=== PATIENT | male | born 1965 | race African-American/Black ===

== ENCOUNTER 2021-10-19 11:34 | Inpatient (IN) | payer OTHER ==
[~2021-10-19] VITALS: Ht 172.7 cm; Wt 122.9 kg
[2021-10-19 11:45] VITALS: BP 131/55
[2021-10-19] MEDS ORDERED: PROTONIX40 M2 PO (14:35)
[2021-10-19] MEDS ORDERED: CETIRIZINE HCL10 MG PO (14:35)
[2021-10-19] MEDS ORDERED: MS CONTIN 30 MG30 M1 PO (14:35)
[2021-10-19] MEDS ORDERED: DILAUDID 4 MG TA4 M1 PO (14:35)
[2021-10-19] MEDS ORDERED: LOSARTAN POTAS100 MG PO (14:35)
[2021-10-19] MEDS ORDERED: HYDROCHLOROTH12.5 M2 PO (14:35)
[2021-10-19] MEDS ORDERED: METOPROLOL SUCC50 MG PO (14:36)
[2021-10-19] MEDS ORDERED: JARDIANCE25 MG PO (14:36)
[2021-10-19] MEDS ORDERED: ATORVASTATIN CA20 MG PO (14:36)
[2021-10-19] MEDS ORDERED: KLOR-CON M1010 MEQ PO (14:36)
[2021-10-19 14:38] LABS: HEMATOCRIT 38.4 % (42.0-52.0); HEMOGLOBIN 13.1 gm/dL (14.0-18.0); MCH 31.3 pg (26.0-34.0); MCV 91.9 fL (80.0-100.0); PLATELET COUNT 229 thou/uL (150-400); RBC 4.17 mil/uL (4.50-6.00); RDW 12.1 % (10.5-14.5)
[2021-10-19 15:51] LABS: ABSOLUTE NEUTROPHILS 3.6 thou/uL (1.4-8.2); ATYPICAL LYMPHS 2 %; CALCIUM 9.4 mg/dL (8.5-10.1); CREATININE 1.1 mg/dL (0.7-1.3); PLATELET ESTIMATE NORMAL; POTASSIUM 3.5 mmol/L (3.5-5.1)
[2021-10-19 16:02] LABS: ALBUMIN 3.4 g/dL (3.4-5.0); MAGNESIUM 1.9 mg/dL (1.8-2.4); TOTAL BILIRUBIN 0.5 mg/dL (0.2-1.0); TOTAL PROTEIN 7.8 g/dL (6.4-8.2)
--- NOTE | 2021-10-19 16:29 | EKG ---
[address] [place] [place] [address] ELECTROCARDIOGRAM REPORT Name: LIZZETTE FOOTE [id number] Admission: 10/19/21 Attend Phys: Discharge: Date of : 61 Report #: [id number] [facility] ED Test Date: 2021-10-19 Test Time: 14:48:42 Pat Name: LIZZETTE FOOTE Department: Room: Gender: M Copy Writer: OMEGA : 1965 Requested By: Yi Chowdhury Order Number: [id number] MD: Rashel Enriquez Measurements Intervals [place] Rate: 36 P: [place]: QRS: -7 QRSD: 96 T: 4 QT: 460 QTc: 356 Interpretive Statements Atrial fibrillation with a slow ventricular response Poor R-wave progression No previous ECG available for comparison Electronically Signed On 10-19-2021 16:29:12 TUB MENDER by Rashel Enriquez [email or web address] <ELECTRONICALLY SIGNED> By: Rashel Enriquez MD, [facility] 10/19/21 1629 1448 1448 Rashel Enriquez MD, FACC /EPI
[2021-10-19 19:54] VITALS: BP 151/69
[2021-10-19 21:10] VITALS: BP 127/70
[2021-10-20 02:40] LABS: HEMATOCRIT 37.7 % (42.0-52.0); HEMOGLOBIN 12.7 gm/dL (14.0-18.0); MCH 30.9 pg (26.0-34.0); MCHC 33.6 g/dL (28.0-37.0); MCV 92.1 fL (80.0-100.0); PLATELET COUNT 219 thou/uL (150-400); RDW 12.1 % (10.5-14.5); WBC 7.7 thou/uL (4.0-11.0)
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
[2021-10-20 04:51] VITALS: BP 133/70
--- NOTE | 2021-10-20 08:32 | EKG ---
[address] [place] [address] ELECTROCARDIOGRAM REPORT Name: LIZZETTE FOOTE Room #: 210-[facility]..#: [id number] Admission: 10/19/21 Attend Phys: Reggie Rojo MD Discharge: Date of : 61 Report #: [id number] [facility] Test Date: 2021-10-20 Test Time: 07:58:30 Pat Name: LIZZETTE FOOTE Department: Room: 210 P Gender: M Graphic Coordinator: DREA : 1965 Requested By: Nicho Blum Order Number: [id number] MD: Reji Tucker Measurements Intervals [place] Rate: 52 P: [place]: QRS: -8 QRSD: 101 T: 5 QT: 457 QTc: 425 Interpretive Statements Junctional rhythm vs AFIB Inferior infarct, old Compared to ECG 10/19/2021 14:48:42 Poor R-wave progression no longer present Electronically Signed On 10-20-2021 8:31:53 [employer] TRAVEL COUNSELOR by Reji Tucekr [email or web address] <ELECTRONICALLY SIGNED> By: Reji Tucker MD, [facility] 10/20/21 0831 0758 0758 Reji Tucker MD, FACC /EPI
[2021-10-20 08:43] VITALS: BP 136/70
--- NOTE | 2021-10-20 10:16 | NUR ---
TOOK OVER CARE OF THIS PATIENT AT 0700. PATIENT RESTING IN BED COMFORTABLY. CARDIOLOGY CONSULTED PATIENT THIS MORNING; WILL CONTINUE TO MONITOR HEART RHYTHM AND RATE. PATIENT AXOX4; ANSWERS QUESTIONS APPROPRIATLEY. PATIENT HAS ECHOCARDIOGRAM, EKG, MRI, AND ULTRASOUND SCHEDULED FOR THIS AM. ASSESSMENTS CHARTED. FALL PRECAUTIONS IN PLACE. CALL LIGHT WITHIN REACH.
--- NOTE | 2021-10-20 11:21 | 2DMMODE ---
[facility] [place] [address] 2 D/M-MODE ECHOCARDIOGRAM Name: LIZZETTE FOOTE Room #: 210-P [facility] M.R.#: [id number] Admission: 10/19/21 Attend Phys: Reggie Rojo MD Discharge: Date of : 61 Report #: [id number] THIS REPORT FOR: cc: FAM - Family physician unknown FAM - Family physician unknown Reji Tucker MD [facility] ~ APPROVED REPORT Study performed: 10/20/2021 08:35:07 EXAM: Comprehensive 2D, Doppler, and color-flow Echocardiogram Patient Location: Bedside Room #: 210 Status: routine BSA: 2.36 HR: 57 bpm BP: 133/70 mmHg Rhythm: NSR Other Information Study Quality: Good Indications Bradycardia Hx: HTN, HLP, DM, BLE. 2D Dimensions IVSd: 8.94 (7-11mm) LVOT Diam: 21.28 (18-24mm) LVDd: 49.72 mm PWd: 8.63 (7-11mm) Ascending Ao: 37.99 (22-36mm) LVDs: 33.20 (25-40mm) Left Atrium: 36.75 (27-40mm) Aortic Root: 36.21 mm Volumes Left Atrial Volume (Systole) Single Plane 4CH: 62.98 mL Single Plane 2CH: 75.03 mL LA ESV Index: 31.00 mL/m2 Aortic Valve AoV Peak Charlie.: 1.97 m/s AO Peak Gr.: 15.47 mmHg LVOT Max P.06 mmHg LVOT Max V: 1.33 m/s TIANA Vmax: 2.40 cm2 [facility] [address] [place] [address] 2 D/M-MODE ECHOCARDIOGRAM Name: LIZZETTE FOOTE Room #: 210-P [facility] IN [facility]#: [id number] Admission: 10/19/21 Attend Phys: Reggie Rojo MD Discharge: Date of : 61 Report #: [id number] Mitral Valve E/A Ratio: 1.3 MV Decel. Time: 253.25 ms MV E Max Charlie.: 1.11 m/s MV A Charlie.: 0.85 m/s MV PHT: 73.44 ms IVRT: 55.36 ms Pulmonary Valve PV Peak Charlie.: 1.01 m/s PV Peak Gr.: 4.12 mmHg Pulmonary Vein P Vein S: 0.91 m/s P Vein D: 0.97 m/s P Vein S/D Ratio: 0.94 Tricuspid Valve TR Peak Charlie.: 2.43 m/s RAP Estimate: 5.00 mmHg TR Peak Gr.: 24.00 mmHg PA Pressure: 29.00 mmHg Left Ventricle The left ventricle is normal size. There is normal LV segmental wall motion. There is normal left ventricular wall thickness. Left ventricular systolic function is normal. LVEF is 65%. The left ventricular diastolic function is normal. Right Ventricle The right ventricle is normal size. The right ventricular systolic function is normal. Atria The left atrium size is normal. The right atrium size is normal. Aortic Valve The aortic valve is normal in structure. No aortic regurgitation is present. There is no aortic valvular stenosis. Mitral Valve The mitral valve is normal in structure. Mild mitral regurgitation. Tricuspid Valve The tricuspid valve is normal in structure. Trace tricuspid [facility] [place] [address] 2 D/M-MODE ECHOCARDIOGRAM Name: LIZZETTE FOOTE Room #: 210-P [facility] IN M.R.#: [id number] Admission: 10/19/21 Attend Phys: Reggie Rojo MD Discharge: Date of : 61 Report #: [id number] regurgitation. Estimated PAP is 29mmHg. Pulmonic Valve The pulmonary valve is normal in structure. Trace pulmonic regurgitation. Great Vessels The aortic root is normal in size. The ascending aorta is borderline dilated. IVC is normal in size and collapses >50% with inspiration. Pericardium There is no pericardial effusion. <Conclusion> Normal ventricle size/wall thickness central ejection fraction 65% Normal right ventricle size/function Normal atrial size Normal aortic valve structure and function Mild mitral valve insufficiency Trace tricuspid valve insufficiency Pulmonary systolic pressure estimated 29 mmHg No pericardial effusion Ascending aorta borderline dilated <ELECTRONICALLY SIGNED> By: Reji Tucker MD, FACC 10/20/211120 20 20 Reji Tucker MD, FAC /INF
[2021-10-20 11:37] VITALS: BP 126/64
[2021-10-20 14:02] LABS: ABSOLUTE NEUTROPHILS 3.3 thou/uL (1.4-8.2); ATYPICAL LYMPHS 4 %; PLATELET ESTIMATE NORMAL
[2021-10-20 16:19] VITALS: BP 137/68
[2021-10-20 19:09] VITALS: BP 135/62
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
[2021-10-21] VITALS (7 sets, daily range): BP systolic 124–190; BP diastolic 68–101
--- NOTE | 2021-10-21 04:45 | NUR ---
ASSUMED PT CARE AT 1900, ALERT AND ORIENTEDX4, ASSESSMENTS CHARTED, SR/1DAVB ON TELE, HR LOW 31 ON TELE WHILE SLEEPING, ASYMPTOMATIC, DENIES CP OR SOB, PAIN TO THE LLE, TREATED WITH SCHEDULED AND PRN PAIN MEDS WITH PARTIAL RELIEF, DRESSING TO THE L. ARANDA CHANGED, WILL CONTINUE TO MONITOR PT PER POC
[2021-10-21 07:21] LABS: HEMOGLOBIN 12.4 gm/dL (14.0-18.0); MCH 30.2 pg (26.0-34.0); MCHC 32.6 g/dL (28.0-37.0); MCV 92.7 fL (80.0-100.0); RBC 4.1 mil/uL (4.50-6.00); RDW 12.6 % (10.5-14.5); WBC 7.3 thou/uL (4.0-11.0)
[2021-10-21 07:25] LABS: CALCIUM 8.7 mg/dL (8.5-10.1); POTASSIUM 4.4 mmol/L (3.5-5.1)
--- NOTE | 2021-10-21 12:12 | NUR ---
PT ADMITTED FOR A-FIB, WOUND L ARANDA. REVIEWED PTS CHART AND DISCUSSED WITH CARE TEAM. MET WITH PT THIS DAY. HEDY SINCLAIR INTRODUCED. PT REPORTS HE LIVES AT HOME WITH "HIS MISSES" AND DAUGHTER. HE REPORTS IS INDENPENDENT WITH ALL ADLS AND MOBILITY. PT WILL DC ON ABTS. UNSURE IF PO OF IV ABTS AT THIS TIME. WILL CONTINUE TO FOLLOW AND MAKE RECOMMENDATIONS NEEDED.
--- NOTE | 2021-10-21 13:35 | NUR ---
TOOK OVER CARE OF THIS PATIENT AT 0700. PT AXOX4. PT ON ROOM AIR; DENIES SHORTNESS OF BREATH. PT DENIES PAIN AT THIS TIME. VSS. GOOD APPETITE. ASSESSMENTS CHARTED. FALL PRECAUTIONS IN PLACE. FAMILY/SIGNIFICANT OTHER AT BEDSIDE. DENIES ANY OTHER NEEDS.
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
--- NOTE | 2021-10-21 15:23 | NUR ---
PLAN OF CARE STILL UNCERTAIN IF PT WILL DC ON PO OR IV ABTS. CM SENT REFERRAL TO [facility] TO VERIFY COVERAGE OF HOME AND ABT SUPPLIES. STILL PENDING AT THIS TIME. [facility] HAS ACCEPTED PT FOR HH SHOULD PT NEED HH ON DISCHARGE THROUGH THE WEEKEND. [facility] PHONE NUMBER IS [phone].
--- NOTE | 2021-10-22 03:24 | NUR ---
ASSUMED PT CARE AT 1900, ALERT AND ORIENTEDX4, FAMILY AT BEDSIDE, ASSESSMENTS CHARTED, BRADYCARDIA LOW 26 BPM NOTED ON TELE, CARDIOLOGY NOTIFIED, NO ORDERS RECEIVED, DENIES DIZZINESS, LIGHTHEADEDNESS AND CP, DRESSING TO THE L. ARANDA INTACT, MEDS GIVEN PER EMAR, VSS, WILL CONTINUE TO MONITOR PER POC
[2021-10-22 04:31] VITALS: BP 121/57
[2021-10-22 04:43] LABS: HEMATOCRIT 35.9 % (42.0-52.0); HEMOGLOBIN 12.2 gm/dL (14.0-18.0); MCH 31.2 pg (26.0-34.0); MCHC 34.1 g/dL (28.0-37.0); MCV 91.5 fL (80.0-100.0); RBC 3.92 mil/uL (4.50-6.00); RDW 12.5 % (10.5-14.5); WBC 6.3 thou/uL (4.0-11.0)
[2021-10-22 04:47] LABS: CALCIUM 8.4 mg/dL (8.5-10.1); CREATININE 0.9 mg/dL (0.7-1.3); POTASSIUM 3.7 mmol/L (3.5-5.1)
[2021-10-22 07:53] VITALS: BP 145/73
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
[2021-10-22 12:04] VITALS: BP 160/79
[2021-10-22 12:25] VITALS: BP 160/79
[2021-10-22 16:08] VITALS: BP 144/73
[2021-10-22 20:15] VITALS: BP 146/83
--- NOTE | 2021-10-23 02:51 | NUR ---
ASSESSMENTS CHARTED, MEDS CHARTED GIVEN. PATIENT RESTING IN BED DURING SHIFT. UP AT SONYA IN ROOM. RECEIVING ANTIBIOTICS, NO MAINTENANCE FLUIDS. HR CONTINUES TO DECREASE WHEN ASLEEP. HR DIPPED BRIEFLY IN THE 20'S AND 30'S. PATIENT NPO SINCE MIDNIGHT FOR I&D IN THE AM FOR HIS LEFT LEG WOUND. MRI SHOWED NO EVIDENCE OF OSTEOMYLITIS. WOUND POSSITIVE FOR MICROCOCCUS AND STAPHYLOCOCCUS.
[2021-10-23 04:45] VITALS: BP 156/83
[2021-10-23 07:00] VITALS: BP 118/77
[2021-10-23 07:10] VITALS: BP 143/82
[2021-10-23 11:41] VITALS: BP 156/85
[2021-10-23 15:15] VITALS: BP 137/74
--- NOTE | 2021-10-23 19:31 | NUR ---
Pt went down for surgery at 8:30am. Pt was A&0x4, VS stable and afebrile. Hardware in Left ankle was removed. Dressing in place. Feet are edematous. Pulses present. Pt reports having pain. Which is being controlled with repositioning and pain medication. Pt was up to the commode with assistance and had BM. at bedside. No concerns at this time. Continue to monitor.
[2021-10-23 19:45] VITALS: BP 140/63
[2021-10-24 00:05] VITALS: BP 136/71
--- NOTE | 2021-10-24 02:30 | NUR ---
ASSESSMENTS CHARTED, MEDS CHARTED GIVEN. RESTING IN BED POST SURGERY. LEFT LEG ELEVATED ON PILLOW SO HEEL IS FLOATING ABOVE BED. HEMOVAC IN PLACE, DRAINING. DIET WAS ADVANCED TO HEART HEALTHY DURING SHIFT. PAIN MEDS GIVEN OFTEN AVAILABLE TO HELP CONTROL PAIN. PATIENT ALREADY REQUESTING A DISCHARGE DATE.
[2021-10-24 04:45] VITALS: BP 153/85
[2021-10-24 04:53] LABS: CALCIUM 8.4 mg/dL (8.5-10.1); CREATININE 0.9 mg/dL (0.7-1.3); POTASSIUM 3.6 mmol/L (3.5-5.1)
[2021-10-24 05:11] LABS: HEMATOCRIT 37.6 % (42.0-52.0); HEMOGLOBIN 12.6 gm/dL (14.0-18.0); MCH 30.8 pg (26.0-34.0); MCHC 33.4 g/dL (28.0-37.0); MCV 92.2 fL (80.0-100.0); RBC 4.08 mil/uL (4.50-6.00); RDW 12.3 % (10.5-14.5); WBC 8.1 thou/uL (4.0-11.0)
[2021-10-24 08:31] VITALS: BP 168/81
--- NOTE | 2021-10-24 10:19 | NUR ---
Pt off unit for EGD.
--- NOTE | 2021-10-24 10:36 | NUR ---
Assumed care of pt this AM. Pt is A&O x4, on RA, Phani 1 on the monitor. Pt reports no chest pain or SOA. Pt reports Lt leg pain 10/10, uncontrolled throughout the night. Ice applied to LLE per order. Camb boot ordered for pt per order. Spoke w/ provider about changing PO pain medication to obtain better relief of pain. Plan to work w/ PT today. Pt denies any other concerns currently.
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
[2021-10-24 12:08] VITALS: BP 140/66
--- NOTE | 2021-10-24 15:34 | NUR ---
CM MET WITH PT THIS DAY. [facility] ACCEPTED PT ONCE MEDICALLY STABLE TO DC HOME. PT CONTINUES TO BE AGREEABLE TO HOME INFUSION. HAS SUPPORTIVE FAMILY. WILL CONTINUE TO FOLLOW DISCHARGE NEEDS.
--- NOTE | 2021-10-24 17:26 | O ---
[facility] [place] [address] OPERATIVE REPORT Name: LIZZETTE FOOTE Room #: 210-P [facility] .R.#: [id number] Admission: 10/20/21 Attend Phys: Reggie Rojo MD Discharge: Date of : 61 Report #: [id number] THIS REPORT FOR: cc: FAM - Family physician unknown FAM - Family physician unknown Zanedr Matias MD ~ DATE OF SERVICE: 10/23/2021 PREOPERATIVE DIAGNOSES: 1. Left leg retained hardware. 2. Left leg abscess. POSTOPERATIVE DIAGNOSES: 1. Left leg retained hardware. 2. Left leg abscess. PROCEDURE: Left leg hardware removal with irrigation and debridement. SURGEON: Zander Matias MD LATH TIER: None. ANESTHESIA: General. ESTIMATED BLOOD LOSS: 50 mL. DRAINS: One Hemovac drain was placed. COMPLICATIONS: There were no complications. TOURNIQUET TIME: 84 minutes. DESCRIPTION OF PROCEDURE: The patient brought to the operating room where he was placed under general anesthesia. Once under adequate general anesthesia, his left lower extremity was prepped and draped in a sterile manner. The extremity was elevated and a tourniquet placed to 300 mmHg. The patient had a medial wound over his distal tibia and hardware, which was in place there. This was excised in an elliptical fashion. This was a transverse wound unfortunately. The distal aspect of his previous scar was incised as well, thereby exposing the distal medial tibial plate, the 5 or 6 screws in the plate there distally were then removed through this incision. Two separate incisions were made proximally over the 5 screw heads there. These were also removed. Osteotomes and curettes were used to remove any overlying bone that had grown over the plate and the screw heads. The screws were then subsequently removed. The plate was freed from the surrounding soft tissue and soft bone with a large osteotome and a Ryan elevator and then subsequently removed through the distal [facility] [address] [place] [address] OPERATIVE REPORT Name: LIZZETTE FOOTE Dayna Room #: 210-P [facility].#: [id number] Admission: 10/20/21 Attend Phys: Reggie Rojo MD Discharge: Date of : 61 Report #: [id number] incision. Cultures had been taken upon entering the leg. The wound was irrigated copiously with normal saline solution and then closed over a Hemovac drain with a 2-0 Prolene in the subcutaneous tissues and yair proximally and very distally on the incision, and then 2-0 nylon in the excised portion of the wound. The wound was then dressed with Xeroform, 4x4s, and a sterile soft compressive dressing was placed. The tourniquet was let down at approximately 84 minutes. Toes were pink and warm. Good capillary refill. There were no complications from the procedure. The patient tolerated the procedure well and was to the recovery room without incident. <ELECTRONICALLY SIGNED> By: Zander Matias MD 10/24/21 1726 [id number] Zander Matias MD /nt
[2021-10-24 20:15] VITALS: BP 144/66
--- NOTE | 2021-10-25 00:51 | NUR ---
ASSESSMENT CHARTED. PT IS CALM AND COOPERATIVE. LLE ELEVATED ON PILLOW, HEEL OFFLOADED,POSTOP DRSG IN PLACE. GOOD CSM TO TOES ON LLE.JUNCTIONAL RHYTHM,DENIES CHESTPAIN.CALLS WITH NEEDS.
[2021-10-25 04:45] VITALS: BP 146/77
[2021-10-25 04:52] LABS: HEMATOCRIT 33.6 % (42.0-52.0); HEMOGLOBIN 11.2 gm/dL (14.0-18.0); MCH 30.8 pg (26.0-34.0); MCHC 33.5 g/dL (28.0-37.0); MCV 92.2 fL (80.0-100.0); RBC 3.65 mil/uL (4.50-6.00); RDW 12.2 % (10.5-14.5); WBC 7.2 thou/uL (4.0-11.0)
[2021-10-25 05:11] LABS: CALCIUM 8.1 mg/dL (8.5-10.1); CREATININE 0.9 mg/dL (0.7-1.3); POTASSIUM 3.6 mmol/L (3.5-5.1)
[2021-10-25 07:00] VITALS: BP 1401/69
--- NOTE | 2021-10-25 11:41 | NUR ---
PICC LINE BEING PLACED BY IV NURSE AT THIS TIME. PLAN FOR PATIENT TO DISCHARGE TOMORROW WITH IV ABX. THERAPY TO SEE PATIENT AFTER LINE PLACEMENT. SPOKE WITH DR. ALEGRE, ORDERS TO D/C DRAIN. WILL PRE-TREAT WITH PAIN MEDICATION PRIOR TO REMOVAL.
--- NOTE | 2021-10-25 11:58 | NUR ---
A SINGLE LUMEN POWER PICC WAS PLACED PER HOSPITAL POLICY AFTER A BEDSIDE TIMEOUT WAS COMPLETED. THE RIGHT BASILIC VEIN TO CATHETER RATIO WAS LESS THAN 28%. THE PICC WAS TRIMMED TO 48CM AND CONFIRMED AT 3CM EXTERNAL. LINE WAS SECURED AND RELEASED FOR USE
--- NOTE | 2021-10-25 12:39 | NUR ---
WOUND CARE F/U; ROUNDING WITH DR MUSA AND JASEN [employer] SERVICER TODAY. THE LEFT ARANDA SURGICAL INSCISION IS STABLE WITH NO S/S OF DEHISCENCE. NO ODOR. THE EXTREMITY IS LESS TENDER. THE PERIWOUND MARGINS HAVE NO S/S OF INFECTION. SKIN TEMP IS WNL. RECOMMENDATION; CONTINUE CURRENT TREATMENT.
[2021-10-25 16:00] VITALS: BP 114/97
--- NOTE | 2021-10-25 16:39 | NUR ---
CLINICAL UPDATES SENT TO [facility]. PT AGREEABLE TO ADMINISTER IV ABTS FOLLOWING TEACHING. CM WILL FOLLOW.
[2021-10-25 19:28] VITALS: BP 146/69
[2021-10-26 03:52] VITALS: BP 134/73
--- NOTE | 2021-10-26 07:35 | NUR ---
assumed pt care at 1900, alert andf orientedx4, rick on tele as low as 29 while sleeping, assessments as charted, remains on iv abx, plan to discharge home with iv abx, enzo picc intact, report given to day rn
[2021-10-26 08:00] VITALS: BP 153/83
[2021-10-26] MEDS ORDERED: DILAUDID 4 MG TA4 M1 PO (11:43)
[2021-10-26] MEDS ORDERED: VANCOMYCIN1.25 GM/23 IV (11:44)
[2021-10-26 12:33] VITALS: BP 137/75
[2021-10-26 15:03] VITALS: BP 160/79
--- NOTE | 2021-10-26 16:15 | NUR ---
PT TO DC HOME THIS EVENING. [facility] ACCEPTED AND WILL SEE PT FOR HH NEEDS. [facility] ACCEPTED TO SUPPLY MEDICATIONS AND SUPPLIES FOR PT. THEY CAME AND PROVIDED PT WITH EDUCATION AT BEDSIDE. [facility] PROVIDED FOR PT ON DC. PT AGREEABLE TO ALL DC PLAN.
--- NOTE | 2021-10-26 17:25 | NUR ---
PATIENT DISCHARGED HOME WITH PICC LINE IN PLACE FOR HOME IV ABX. EDUCATION DONE AT BEDSIDE BY [facility]. DISCHARGE INSTRUCTIONS REVIEWED WITH PATIENT. AWARE OF NEED FOR FOLLOW UP APPOINTMENTS WITH ID, CARDIOLOGY, AND ORTHO. SCRIPT FOR PAIN MEDICATION GIVEN. PATIENT DENIES ANY QUESTIONS OR CONCERNS. ALL BELONGINGS SENT HOME WITH PATIENT.
== END 2021-10-26 18:02 | disposition home health service (06) | DRG 493 ==
LOC: ER 11:34 → EROBS 16:53 → 2N 16:53
PROVIDERS: Orthopaedic Surgery Foot and Ankle Surgery; Physician Assistant; Specialist; ADMIT Hospitalist; ATTEND Hospitalist
DX: T84.623A Infection and inflammatory reaction due to internal fixation device of left tibia, initial encounter (principal); T81.41XA Infection following a procedure, superficial incisional surgical site, initial encounter; L03.116 Cellulitis of left lower limb; E44.1 Mild protein-calorie malnutrition; Z68.41 Body mass index [BMI] 40.0-44.9, adult; L97.929 Non-pressure chronic ulcer of unspecified part of left lower leg with unspecified severity; L02.416 Cutaneous abscess of left lower limb; I48.91 Unspecified atrial fibrillation; I10 Essential (primary) hypertension; E11.622 Type 2 diabetes mellitus with other skin ulcer; E66.9 Obesity, unspecified; E78.5 Hyperlipidemia, unspecified; S80.922A Unspecified superficial injury of left lower leg, initial encounter; X58.XXXA Exposure to other specified factors, initial encounter; B95.7 Other staphylococcus as the cause of diseases classified elsewhere; I49.5 Sick sinus syndrome; G89.4 Chronic pain syndrome; B96.89 Other specified bacterial agents as the cause of diseases classified elsewhere; Y83.8 Other surgical procedures as the cause of abnormal reaction of the patient, or of later complication, without mention of misadventure at the time of the procedure; Z96.643 Presence of artificial hip joint, bilateral; Z20.822 Contact with and (suspected) exposure to COVID-19; Z79.899 Other long term (current) drug therapy; Z79.891 Long term (current) use of opiate analgesic; Y93.89 Activity, other specified; Y92.89 Other specified places as the place of occurrence of the external cause; Y99.8 Other external cause status; Z87.81 Personal history of (healed) traumatic fracture; Z87.828 Personal history of other (healed) physical injury and trauma
CPT/HCPCS: 10081; 27000; 50101; 50386; 51412; 56525; 57091; 57180; 62110; 62900; 70005

== ENCOUNTER → 2021-11-16 | Outpatient (CLI) | payer OTHER ==
[~2021-11-16] MED LIST: ATORVASTATIN CA20 MG PO; CETIRIZINE HCL10 MG PO; DILAUDID 4 MG TA4 M1 PO; HYDROCHLOROTH12.5 M2 PO; JARDIANCE25 MG PO; KLOR-CON M1010 MEQ PO; LOSARTAN POTAS100 MG PO; METOPROLOL SUCC50 MG PO; MS CONTIN 30 MG30 M1 PO; PROTONIX40 M2 PO; VANCOMYCIN1.25 GM/23 IV
== END ==
LOC: HYPER 07:56
PROVIDERS: ATTEND Emergency Medicine
DX: T81.31XA Disruption of external operation (surgical) wound, not elsewhere classified, initial encounter (principal); E11.622 Type 2 diabetes mellitus with other skin ulcer; L97.822 Non-pressure chronic ulcer of other part of left lower leg with fat layer exposed; R60.1 Generalized edema; I10 Essential (primary) hypertension; E66.01 Morbid (severe) obesity due to excess calories; Z68.41 Body mass index [BMI] 40.0-44.9, adult; Y92.238 Other place in hospital as the place of occurrence of the external cause; Y83.8 Other surgical procedures as the cause of abnormal reaction of the patient, or of later complication, without mention of misadventure at the time of the procedure

== ENCOUNTER → 2021-11-28 | Outpatient (CLI) | payer OTHER | LOC: HYPER 13:31 | PROVIDERS: ATTEND Emergency Medicine | DX: T81.31XD Disruption of external operation (surgical) wound, not elsewhere classified, subsequent encounter (principal); S91.002D Unspecified open wound, left ankle, subsequent encounter; E11.622 Type 2 diabetes mellitus with other skin ulcer; L97.822 Non-pressure chronic ulcer of other part of left lower leg with fat layer exposed; R60.1 Generalized edema; I10 Essential (primary) hypertension; E66.9 Obesity, unspecified; Z68.41 Body mass index [BMI] 40.0-44.9, adult; Z79.899 Other long term (current) drug therapy; Z79.84 Long term (current) use of oral hypoglycemic drugs; V49.49XD Driver injured in collision with other motor vehicles in traffic accident, subsequent encounter; Y83.8 Other surgical procedures as the cause of abnormal reaction of the patient, or of later complication, without mention of misadventure at the time of the procedure ==

== ENCOUNTER → 2021-11-30 | Outpatient (CLI) | payer OTHER | LOC: SJCVC 14:45 | PROVIDERS: ATTEND Internal Medicine Cardiovascular Disease | DX: R00.1 Bradycardia, unspecified (principal); Z79.899 Other long term (current) drug therapy ==

== ENCOUNTER → 2021-12-05 | Outpatient (CLI) | payer OTHER | LOC: HYPER 08:01 | PROVIDERS: ATTEND Emergency Medicine | DX: T81.31XD Disruption of external operation (surgical) wound, not elsewhere classified, subsequent encounter (principal); S91.002D Unspecified open wound, left ankle, subsequent encounter; E11.622 Type 2 diabetes mellitus with other skin ulcer; L97.822 Non-pressure chronic ulcer of other part of left lower leg with fat layer exposed; R60.1 Generalized edema; I10 Essential (primary) hypertension; E66.01 Morbid (severe) obesity due to excess calories; Z68.41 Body mass index [BMI] 40.0-44.9, adult; Z79.84 Long term (current) use of oral hypoglycemic drugs; V49.49XD Driver injured in collision with other motor vehicles in traffic accident, subsequent encounter; Y83.8 Other surgical procedures as the cause of abnormal reaction of the patient, or of later complication, without mention of misadventure at the time of the procedure ==

== ENCOUNTER → 2021-12-12 | Outpatient (CLI) | payer OTHER | LOC: HYPER 11:10 | PROVIDERS: ATTEND Emergency Medicine | DX: T81.31XD Disruption of external operation (surgical) wound, not elsewhere classified, subsequent encounter (principal); S91.002D Unspecified open wound, left ankle, subsequent encounter; E11.622 Type 2 diabetes mellitus with other skin ulcer; L97.822 Non-pressure chronic ulcer of other part of left lower leg with fat layer exposed; R60.1 Generalized edema; I10 Essential (primary) hypertension; E66.01 Morbid (severe) obesity due to excess calories; Z68.41 Body mass index [BMI] 40.0-44.9, adult; Z79.84 Long term (current) use of oral hypoglycemic drugs; V49.49XD Driver injured in collision with other motor vehicles in traffic accident, subsequent encounter; Y83.8 Other surgical procedures as the cause of abnormal reaction of the patient, or of later complication, without mention of misadventure at the time of the procedure ==

== ENCOUNTER → 2021-12-19 | Outpatient (CLI) | payer OTHER | LOC: HYPER 08:44 | PROVIDERS: ATTEND Emergency Medicine | DX: T81.31XD Disruption of external operation (surgical) wound, not elsewhere classified, subsequent encounter (principal); S91.002D Unspecified open wound, left ankle, subsequent encounter; E11.622 Type 2 diabetes mellitus with other skin ulcer; L97.822 Non-pressure chronic ulcer of other part of left lower leg with fat layer exposed; R60.1 Generalized edema; I10 Essential (primary) hypertension; E66.01 Morbid (severe) obesity due to excess calories; Z68.41 Body mass index [BMI] 40.0-44.9, adult; Z79.84 Long term (current) use of oral hypoglycemic drugs; V49.49XD Driver injured in collision with other motor vehicles in traffic accident, subsequent encounter; Y83.8 Other surgical procedures as the cause of abnormal reaction of the patient, or of later complication, without mention of misadventure at the time of the procedure ==

== ENCOUNTER → 2021-12-26 | Outpatient (CLI) | payer OTHER | LOC: HYPER 11:40 | PROVIDERS: ATTEND Emergency Medicine | DX: T81.31XD Disruption of external operation (surgical) wound, not elsewhere classified, subsequent encounter (principal); E11.622 Type 2 diabetes mellitus with other skin ulcer; L97.822 Non-pressure chronic ulcer of other part of left lower leg with fat layer exposed; R60.1 Generalized edema; I10 Essential (primary) hypertension; E66.9 Obesity, unspecified; Z68.41 Body mass index [BMI] 40.0-44.9, adult; Z79.899 Other long term (current) drug therapy; Y83.8 Other surgical procedures as the cause of abnormal reaction of the patient, or of later complication, without mention of misadventure at the time of the procedure ==

== ENCOUNTER → 2022-01-02 | Outpatient (CLI) | payer OTHER | LOC: HYPER 09:39 | PROVIDERS: ATTEND Emergency Medicine | DX: T81.31XD Disruption of external operation (surgical) wound, not elsewhere classified, subsequent encounter (principal); E11.622 Type 2 diabetes mellitus with other skin ulcer; L97.822 Non-pressure chronic ulcer of other part of left lower leg with fat layer exposed; R60.1 Generalized edema; I10 Essential (primary) hypertension; E66.01 Morbid (severe) obesity due to excess calories; Z68.41 Body mass index [BMI] 40.0-44.9, adult; Y83.8 Other surgical procedures as the cause of abnormal reaction of the patient, or of later complication, without mention of misadventure at the time of the procedure ==